=== PATIENT | male | born 1965 | race Caucasian/White ===

== ENCOUNTER 2020-06-24 13:18 | Inpatient (IN) | payer BC, SELFPAY ==
[2020-06-24] VITALS (14 sets, daily range): BP systolic 114–166; BP diastolic 64–90; PULSE 69–86; RESP 17–36; TEMP 36.9; O2SAT 85–95; BMI 30.4
--- NOTE | 2020-06-24 13:35 | XRR_ITS ---
PROCEDURE INFORMATION: Exam: XR Chest, 1 View Exam date and time: 06/24/2020 1:38 PM Age: 54 years old Clinical indication: Shortness of breath; Additional info: Hypoxia/ covid symptoms TECHNIQUE: Imaging protocol: XR of the chest Views: 1 view. COMPARISON: No relevant prior studies available. FINDINGS: Lungs: There are diffuse peripheral rounded pulmonary opacities which may represent pneumonitis and are consistent with clinical diagnosis of COVID-19 infection. These are present in all segments of the lungs. Pleural space: Unremarkable. No pleural effusion. No pneumothorax. Heart/Mediastinum: Heart is within normal limits of size. Bones/joints: There are degenerative changes in the thoracic spine. XR/XR chest 1V portable [id number] IMPRESSION: Bilateral pulmonary opacities consistent with clinical diagnosis of COVID-19
--- NOTE | 2020-06-24 13:35 | ECG_ITS ---
[facility] Test Date: 2020-06-24 Pat Name: Mickey Fuentes Department: Room: Gender: Male Prefabricator: : 1965 Requested By: Román Arroyo Order Number: [id number] Garcia MD: Johnnie Silver M.D. Measurements Intervals [place] Rate: 77 P: 19 TX: 133 QRS: -21 QRSD: 113 T: 15 QT: 379 QTc: 430 Interpretive Statements SINUS RHYTHM BORDERLINE LEFT AXIS DEVIATION [QRS AXIS < -20] MODERATE INTRAVENTRICULAR CONDUCTION DELAY [110+ ms QRS DURATION] VOLTAGE CRITERIA FOR LVH [MEETS CRITERIA IN ONE OF: R(aVL), S(V1), R(V5), R(V5/V6)+S(V1)] No previous ECG available for comparison Electronically Signed On 06-24-2020 16:39:22 CREPE MAKER by Johnnie Silver M.D. [id number]
--- NOTE | 2020-06-24 13:51 | ED_ITS ---
HPI - COVID General: Chief Complaint: COVID symptoms Stated Complaint: Throwing up Blood/low O2/Dizzy/SOB,sent from [facility] Time Seen by Provider: 06/24/20 13:27 Triage information: No fever, cough or shortness of breath . No known COVID + exposure last 14 days History of Present Illness: HPI Narrative: The patient is a 54-year-old male relatively healthy except for days ago he began having cough, muscle aches, low- grade fever, headache, nausea. The cough is since gotten worse and he went to his primary care doctor where he was satting in the mid 80s on room air. He says he has been also coughing up chunks of blood over the past couple days which is concerning for him. Multiple family members tested positive for Covid in the past 2 weeks. Satting 93% on 2 L. No respiratory distress MD complaint: reported COVID exposure and has COVID symptoms Prior covid testing: no COVID 19 common symptoms: positive fever(s), chills, cough, productive cough, dyspnea, body aches, headache(s) and loss of sense of smell and/or taste; negative throat pain, nasal congestion or diarrhea COVID 19 other sytmptoms: positive requiring oxygen; negative chest pain, respiratory distress, cyanosis, lethargy or confusion Severity: moderate COVID Results: SARS-CoV-2 Antigen (Rapid) Negative (Negative) 06/24/20 14:22 06/24/20 Review of Systems General: Reports: 10 or more systems reviewed and unremarkable except in HPI and below Const: Reports: fever(s) and body aches Eyes: Denies: change in vision, blurry vision or eye redness ENMT: Denies: throat pain, swelling of lips/tongue, ear or mastoid pain or nasal congestion Card: Denies: chest pain, palpitations, irregular heart rhythm, edema, dyspnea on exertion or orthopnea Resp: Reports: dyspnea, productive cough and hemoptysis GI: Denies: abdominal pain, diarrhea or GI cramping : Denies: flank pain, urinary frequency or urinary urgency Musc: Denies: neck pain, back pain, extremity pain, joint pain, joint redness, limited range of motion or muscle weakness Skin/Breast: Denies: rash, pruritus, erythema, skin pain or skin tenderness Neuro: Reports: headache(s); Denies: confusion Psych: Denies: anxiety or depression Endo: Denies: polyuria All/Imm: Denies: urticaria, throat swelling or tongue swelling Physical Exam Const: COMMON NORMALS: no acute distress, average body habitus, patient oriented x3, no limitations, healthy appearing, alert and well nourished GENERAL APPEARANCE: cooperative, comfortable, well kempt and well developed ORIENTATION/CONSCIOUSNESS: Yes awake, Yes oriented to person, Yes oriented to place and Yes oriented to time HENMT: COMMON NORMALS: normocephalic, external ears normal and Normal external nose present HEAD & SCALP: normal to inspection and normocephalic NOSE: Normal external nose present EXTERNAL EAR: Yes external ears normal MOUTH: Normal oral and palatal mucosa present THROAT: posterior oropharynx normal Eye: COMMON NORMALS: Equal, round and reactive pupils present and EOMs intact bilaterally GENERAL EYE: appearance normal, both eyes and all related structures PUPIL: Yes Equal, round and reactive pupils present Neck/C-Spine: COMMON NORMALS: full ROM, no lymphadenopathy, no meningeal signs and no JVD GENERAL: Yes normal visual inspection Lymph: LYMPHATIC: no lymphadenopathy noted Chest: COMMONS NORMALS: normal inspection of the chest and normal palpation of entire chest wall Resp: COMMON NORMALS: normal respiratory effort, No retractions, No use of accessory muscles and percussion normal EFFORT & INSPECTION: Yes able to speak in complete sentences AUSCULTATION: rhonchi left lower and right lower PERCUSSION: percussion normal Cardio: COMMON NORMALS: no JVD, regular rate, regular rhythm, S1 normal heart sound present, S2 normal heart sound present and Peripheral pulses 2+ throughout RATE: regular rate RHYTHM: regular rhythm HEART SOUNDS: S1 normal heart sound present and S2 normal heart sound present PERIPHERAL PULSES: Peripheral pulses 2+ throughout GI: COMMON NORMALS: Normal to inspection, nondistended, normoactive bowel sounds present, Soft to palpation, non-tender and no masses INSPECTION: Yes normal to inspection PALPATION: Yes Soft to palpation : COMMON NORMALS: Yes no CVA tenderness BLADDER/KIDNEY EXAM: Yes no CVA tenderness Back/Pelvis: COMMON NORMALS: no CVA tenderness, thoracic and lumbar spine normal to inspection, no thoracic nor lumbar tenderness and thoraco-lumbar ROM normal Extremity: COMMON NORMALS: normal to inspection, full ROM, capillary refill normal, no joint enlargement and no pedal edema GENERAL: Yes normal exam except as noted Neuro: COMMON NORMALS: patient oriented x3, CN's II-XII intact bilaterally, moves all extremities, no focal motor deficits, no sensory deficits noted and gait normal SENSORIUM/ORIENTATION: Yes alert, Yes oriented to person, Yes oriented to place and Yes oriented to time MENINGEAL SIGNS: Yes no meningeal signs Psych: COMMON NORMALS: mental status grossly normal, Normal thought process present, cooperative, normal affect and speech normal APPEARANCE: Yes well kempt ATTITUDE: Yes calm SPEECH: Yes normal speech THOUGHT PROCESS: Normal thought process present Skin: COMMON NORMALS: no rashes or lesions noted GENERAL SKIN EXAM: no rashes or lesions noted Course Vital Signs: Vital signs: Vital Signs Temperature 98.5 F 06/24/20 13:25 Pulse Rate 71 06/24/20 14:14 Respiratory Rate 17 06/24/20 14:13 Blood Pressure 131/75 06/24/20 13:25 Pulse Oximetry 94 06/24/20 14:13 MDM - COVID MDM Narrative: Medical decision making narrative: The patient is a 54-year-old male relatively healthy until 2 weeks ago when he started to have Covid symptoms and 2 family members tested positive. He has continued to cough and 2 days ago he started with hemoptysis. Today he visited his primary care and was satting 85% on room air. He has bilateral rhonchi and chest x-ray is patchy bilaterally as well. Suspected bilateral pneumonia possibly a superinfection as his Covid test is negative. PCR Covid test pending. Discussed with patient and Dr. Barber accepts his care for the Covid unit. Differential Diagnosis: Differential diagnosis: Likely COVID 19, influenza, other viral infection and bacterial infection Lab Data: Labs: Lab Results 06/24/20 06/24/20 06/24/20 Range/Units 14:14 14:14 14:14 WBC 9.6 (4.0-10.0) 10^3/ uL RBC 4.84 (4.1-5.3) 10^6/u L Hgb 14.2 (11.7-16.6) g/dL Hct 43.1 (42.0-52.0) % MCV 89.0 (80-94) fL MCH 29.3 (28.0-34.0) pg MCHC 32.9 (30.0-36.0) g/dL RDW 13.9 (12.1-15.1) % Plt Count 265 (130-400) 10^3/c mm MPV 9.0 (7.4-10.4) fL Neut % (Auto) 85.7 % Lymph % (Auto) 7.7 % Jackson % (Auto) 6.0 % Eos % (Auto) 0.0 % Baso % (Auto) 0.1 % Neut # (Auto) 8.19 H (1.8-7.7) 10^3/u L Lymph # (Auto) 0.7 L (0.8-4.8) 10^3/u L Jackson # (Auto) 0.6 (0.2-0.9) 10^3/u L Eos # (Auto) 0.0 (0.0-0.8) 10^3/u L Baso # (Auto) 0.0 (0.0-0.1) 10^3/u L Nucleated RBC % (a uto) 0 % Nucleated RBCs # 0.0 /100WBC D-Dimer 0.55 (0-0.59) ug/mIFE U Sodium 141 (136-145) mmol/L Potassium 3.8 (3.5-5.1) mmol/L Chloride 101 (98-107) mmol/L Carbon Dioxide 29 (22-29) mmol/L Anion Gap 14.8 (5-19) BUN 17 (6-20) mg/dL Creatinine 0.8 (0.7-1.2) mg/dL GFR Calculation 100.0 (90-130) mL/min Glucose 108 (65-115) mg/dL Calculated Osmolal ity 294 (285-295) mOsm/k g Lactic Acid (0.5-2.2) mmol/L Calcium 8.4 L (8.5-10.5) mg/dL Total Bilirubin 0.4 (0.15-1.2) mg/dL AST 32 (0-40) U/L ALT 36 (0-41) U/L Alkaline Phosphata se 62 (40-130) IU/L Troponin T Gen 5 n g/L (0-15) ng/L Total Protein 6.2 L (6.6-8.7) g/dL Albumin 3.7 (3.5-5.2) g/dL Globulin 2.5 (1.3-4.6) g/dL Influenza Type A A g (Negative) Influenza Type B A g (Negative) SARS-CoV-2 Ag (Rap id) (Negative) 06/24/20 06/24/20 06/24/20 Range/Units 14:14 14:14 14:22 WBC (4.0-10.0) 10^3/ uL RBC (4.1-5.3) 10^6/u L Hgb (11.7-16.6) g/dL Hct (42.0-52.0) % MCV (80-94) fL MCH (28.0-34.0) pg MCHC (30.0-36.0) g/dL RDW (12.1-15.1) % Plt Count (130-400) 10^3/c mm MPV (7.4-10.4) fL Neut % (Auto) % Lymph % (Auto) % Jackson % (Auto) % Eos % (Auto) % Baso % (Auto) % Neut # (Auto) (1.8-7.7) 10^3/u L Lymph # (Auto) (0.8-4.8) 10^3/u L Jackson # (Auto) (0.2-0.9) 10^3/u L Eos # (Auto) (0.0-0.8) 10^3/u L Baso # (Auto) (0.0-0.1) 10^3/u L Nucleated RBC % (a uto) % Nucleated RBCs # /100WBC D-Dimer (0-0.59) ug/mIFE U Sodium (136-145) mmol/L Potassium (3.5-5.1) mmol/L Chloride (98-107) mmol/L Carbon Dioxide (22-29) mmol/L Anion Gap (5-19) BUN (6-20) mg/dL Creatinine (0.7-1.2) mg/dL GFR Calculation (90-130) mL/min Glucose (65-115) mg/dL Calculated Osmolal ity (285-295) mOsm/k g Lactic Acid 1.3 (0.5-2.2) mmol/L Calcium (8.5-10.5) mg/dL Total Bilirubin (0.15-1.2) mg/dL AST (0-40) U/L ALT (0-41) U/L Alkaline Phosphata se (40-130) IU/L Troponin T Gen 5 n g/L 7 (0-15) ng/L Total Protein (6.6-8.7) g/dL Albumin (3.5-5.2) g/dL Globulin (1.3-4.6) g/dL Influenza Type A A g Negative (Negative) Influenza Type B A g Negative (Negative) SARS-CoV-2 Ag (Rap id) (Negative) 06/24/20 Range/Units 14:22 WBC (4.0-10.0) 10^3/ uL RBC (4.1-5.3) 10^6/u L Hgb (11.7-16.6) g/dL Hct (42.0-52.0) % MCV (80-94) fL MCH (28.0-34.0) pg MCHC (30.0-36.0) g/dL RDW (12.1-15.1) % Plt Count (130-400) 10^3/c mm MPV (7.4-10.4) fL Neut % (Auto) % Lymph % (Auto) % Jackson % (Auto) % Eos % (Auto) % Baso % (Auto) % Neut # (Auto) (1.8-7.7) 10^3/u L Lymph # (Auto) (0.8-4.8) 10^3/u L Jackson # (Auto) (0.2-0.9) 10^3/u L Eos # (Auto) (0.0-0.8) 10^3/u L Baso # (Auto) (0.0-0.1) 10^3/u L Nucleated RBC % (a uto) % Nucleated RBCs # /100WBC D-Dimer (0-0.59) ug/mIFE U Sodium (136-145) mmol/L Potassium (3.5-5.1) mmol/L Chloride (98-107) mmol/L Carbon Dioxide (22-29) mmol/L Anion Gap (5-19) BUN (6-20) mg/dL Creatinine (0.7-1.2) mg/dL GFR Calculation (90-130) mL/min Glucose (65-115) mg/dL Calculated Osmolal ity (285-295) mOsm/k g Lactic Acid (0.5-2.2) mmol/L Calcium (8.5-10.5) mg/dL Total Bilirubin (0.15-1.2) mg/dL AST (0-40) U/L ALT (0-41) U/L Alkaline Phosphata se (40-130) IU/L Troponin T Gen 5 n g/L (0-15) ng/L Total Protein (6.6-8.7) g/dL Albumin (3.5-5.2) g/dL Globulin (1.3-4.6) g/dL Influenza Type A A g (Negative) Influenza Type B A g (Negative) SARS-CoV-2 Ag (Rap id) Negative (Negative) COVID Results: SARS-CoV-2 Antigen (Rapid) Negative (Negative) 06/24/20 14:22 06/24/20 Discharge Plan Discharge Patient Disposition: Admitted As Inpatient Clinical Impression: Pneumonia, Suspected severe acute respiratory syndrome coronavirus 2 (SARS-CoV-2) infection Condition: Stable Prescriptions: No Action azithromycin 250 mg tablet 250 mg PO . DIRECTED RF: 0 pravastatin 40 mg tablet 40 mg PO DAILY@08 RF: 0 dexamethasone 4 mg tablet 4 mg PO DAILY RF: 0 aspirin 81 mg Tablet,Chewable 81 mg PO DAILY@08 RF: 0 Coding Level of Care Code ED [employer] for g Fwd Exam Comprehensive
[2020-06-24] MEDS: albuterol 8 gm MDI 2 PUFF INHALATION ×2 (14:08→23:33)
[2020-06-24] MEDS: cefTRIAXone 1,000 MG in sodium chloride 0.9% (plus) 50 ML 100 MG IV (14:10)
[2020-06-24] MEDS: sodium chloride 0.9% 1,000 ML 150 ML IV (14:10)
[2020-06-24 14:50] LABS: Basophils % 0.1 %; Hematocrit 43.1 % (42.0-52.0); Hemoglobin 14.2 g/dL (11.7-16.6); Lymphocytes # 0.7 10^3/uL (0.8-4.8); Lymphocytes % 7.7 %; Mean Corpuscular HGB Conc 32.9 g/dL (30.0-36.0); Mean Corpuscular Hemoglobin 29.3 pg (28.0-34.0); Monocytes # 0.6 10^3/uL (0.2-0.9); Neutrophils # 8.19 10^3/uL (1.8-7.7); Neutrophils % 85.7 %; Nucleated Red Blood Cells % 0 %; Platelet Count 265 10^3/cmm (130-400); Red Blood Count 4.84 10^6/uL (4.1-5.3); Red Cell Distribution Width 13.9 % (12.1-15.1); White Blood Count 9.6 10^3/uL (4.0-10.0)
[2020-06-24 15:28] LABS: D Dimer 0.55 ug/mIFEU (0-0.59)
[2020-06-24 15:34] LABS: Influenza A by IFA Negative (Negative); Influenza B by IFA Negative (Negative)
[2020-06-24 15:35] LABS: SARS Covid-2 Antigen Negative (Negative)
[2020-06-24 15:39] LABS: Alanine Aminotransferase 36 U/L (0-41); Albumin Level 3.7 g/dL (3.5-5.2); Alkaline Phosphatase 62 IU/L (40-130); Anion Gap 14.8 (5-19); Aspartate Amino Transferase 32 U/L (0-40); Blood Urea Nitrogen 17 mg/dL (6-20); Calcium 8.4 mg/dL (8.5-10.5); Carbon Dioxide 29 mmol/L (22-29); Chloride 101 mmol/L (98-107); Globulin 2.5 g/dL (1.3-4.6); Glucose 108 mg/dL (65-115); Lactic Sepsis W/Reflex 1.3 mmol/L (0.5-2.2); Osmolality Calculated 294 mOsm/kg (285-295); Potassium 3.8 mmol/L (3.5-5.1); Sodium 141 mmol/L (136-145); Total Bilirubin 0.4 mg/dL (0.15-1.2); Total Protein 6.2 g/dL (6.6-8.7)
[2020-06-24 15:42] LABS: Slide Review Slide Review Perform; Troponin T (5th) Once 7 ng/L (0-15)
[2020-06-24] MEDS: azithromycin 500 MG in sodium chloride 0.9% 250 ML 250 MG IV (15:59)
--- NOTE | 2020-06-24 20:21 | PM.HP ---
Providers/Chief Complaint Admitting Physician: Ezequiel Barber Chief Complaint: Throwing up Blood/low O2/Dizzy/SOB,sent from [facility] History of Present Illness Pleasant 54-year-old gentleman without much significant past medical history apart from HLD, on prophylactic aspirin, reports has had symptoms consistent with COVID-19 with cough, muscle aches, low-grade fever, headache, nausea he states at first about 12 days ago. More recently he has also developed cough productive of blood-streaked sputum, and sometimes small globules of blood. Also reports this developed some diarrhea and nausea. A number of his family members had tested positive and gone through COVID-19. When initially seen for symptoms he was prescribed azithromycin and dexamethasone. He says he was not tested. On presentation in ER he is found newly hypoxic. He denies any history of chronic lung disease. He has no history of smoking. He is noted saturating in low 90s on 2 L of oxygen. He is afebrile, without leukocytosis, without tachycardia. Chest x-ray shows bilateral pulmonary opacities. He is normal at 0.55. His D-dimer troponin is normal. Liver and renal parameters are normal. Review of Systems Const: Reports: fever(s) (Your initial, not currently), chills, body aches, fatigue and malaise Eyes: Denies: change in vision or eye redness ENMT: Denies: throat pain, oral sores or ear or mastoid pain Card: Denies: chest pain, edema or pre-syncope Resp: Reports: dyspnea, productive cough, change in phlegm color, hemoptysis and chest congestion GI: Reports: nausea; Denies: abdominal pain, vomiting, diarrhea (Loose stools), constipation, hematochezia or melena : Denies: flank pain, difficulty urinating, urinary frequency or hematuria Musc: Denies: back pain, joint swelling or joint redness Skin/Breast: Denies: rash, sores or new lesions Neuro: Denies: headache(s), numbness in extremities, weakness in extremities, dizziness, confusion or seizure-like activity Endo: Denies: polyuria or polydipsia Dandre/Lymph: Denies: easy bleeding or purpura All/Imm: Denies: urticaria, throat swelling or tongue swelling Medications/Allergies Home Medications Medication Instructions Recorded Confirmed Last Taken Type aspirin 81 mg PO DAILY@08 06/24/20 06/24/20 06/24/20 History azithromycin 250 mg PO . DIRECTED 06/24/20 06/24/20 06/24/20 History dexamethasone 4 mg PO DAILY 06/24/20 06/24/20 06/24/20 History pravastatin 40 mg PO DAILY@08 06/24/20 06/24/20 06/23/20 History Allergies Allergy/AdvReac Type Severity Reaction Status Date / Time No Known Allergies Allergy Verified 06/24/20 13:34 PFSH Acute PFSH: Medical History Hyperlipidemia Surgical History H/O arthroscopic knee surgery Family History Other Healthy adult Social History Smoking and tobacco status: never smoked Alcohol intake: never Substance/Drug Use: never Marital status: Current occupational status: employed Vitals/I&O/Wt Last Vital Signs Temp 98.5 F 06/24/20 13:25 Pulse 77 06/24/20 19:35 Resp 36 H 06/24/20 19:35 BP 152/86 06/24/20 19:35 Pulse Ox 90 06/24/20 19:35 06/24/20 06/24/20 06/24/20 06:59 14:59 22:59 Intake Total 300 / 300 Balance 300 / 300 Weight last 48 hrs Weight 90.718 kg Physical Exam Const: COMMON NORMALS: no acute distress and patient oriented x3 HENMT: COMMON NORMALS: oropharynx normal Neck/C-Spine: COMMON NORMALS: no JVD Resp: COMMON NORMALS: normal respiratory effort and clear to auscultation bilaterally AUSCULTATION: crackles and diminished lung sounds Cardio: COMMON NORMALS: no JVD, regular rhythm, S1 normal heart sound present, S2 normal heart sound present and No murmurs present (Cardio) RHYTHM: regular rhythm HEART SOUNDS: S1 normal heart sound present and S2 normal heart sound present GI: COMMON NORMALS: Normal to inspection, nondistended, normoactive bowel sounds present, Soft to palpation and non-tender PALPATION: Yes Soft to palpation Extremity: COMMON NORMALS: no joint enlargement and no pedal edema Neuro: COMMON NORMALS: patient oriented x3 and moves all extremities Skin: COMMON NORMALS: no rashes or lesions noted GENERAL SKIN EXAM: no rashes or lesions noted Data : 06/24/20 14:14 06/24/20 14:14 Micro: Microbiology 06/24/20 14:14 Blood Culture - Preliminary Blood SPECIMEN COLLECTED A&P Assessment and plan (1) Respiratory failure with hypoxia: Possible COVID-19 pneumonia, however, negative rapid test. At this time started on nasal cannula oxygen. Saturating in low 90s on several liters. Due to lack of improvement, progression of symptoms, new hypoxia, he is admitted for inpatient management. With normal D-dimer no asymmetrical lower extremity swelling, other causes for his hypoxia suspicion for PE is low. Status: Acute (2) Person under investigation for COVID-19: Discussed with him high likelihood that this may be COVID-19 infection, with multiple family members who have had it, and symptoms that are suggestive of this. He currently agrees to continue Decadron at 6 mg. We have discussed risks and benefits of remdesivir, at least known risks, understands there may be some unknown risks as well. He for now prefers to hold off on remdesivir until PCR test results are available. We will treat with antibiotics for possible superimposed bacterial infection. He understands that if this is in fact coronavirus he falls into the category of severe coronavirus pneumonia. Prone as tolerating. Albuterol inhaler as needed. Collect sputum culture, urine bacterial antigens. MRSA PCR. Status: Acute (3) Pneumonia: As above. Status: Acute Qualifiers: Laterality: bilateral Lung location: unspecified part of lung Pneumonia type: due to unspecified organism Qualified Code(s): J18.9 - Pneumonia, unspecified organism (4) Hemoptysis: Hold aspirin. Treat pneumonia. Tessalon Perles. Monitor. Only SCD for VT prophylaxis. Status: Acute Attestations Medical Necessity Statement*: Admission of over 2 midnights is going to be needed for assessment management of progressive pneumonia, not responsive to outpatient treatment, with new hypoxic respiratory failure. Coding Level of Care Code Acute Colorectal Surgeon for [facility] Fwd Diagnoses Respiratory failure with hypoxia J96.91 Person under investigation for COVID-19 Z20.828 Pneumonia J18.9 Laterality: bilateral Lung location: unspecified part of lung Pneumonia type: due to unspecified organism Hemoptysis R04.2
[2020-06-24 20:45] LABS: NT Pro B Type Natriuretic Pept 496 pg/mL (0-125)
[2020-06-24] MEDS: dexamethasone 4 mg Tablet 6 MG PO (21:46)
[2020-06-25] VITALS (27 sets, daily range): BP systolic 132–160; BP diastolic 75–95; PULSE 65–92; RESP 12–38; TEMP 37–37.2; O2SAT 84–95; BMI 30.5
[2020-06-25 05:24] LABS: Basophils % 0.4 %; Hematocrit 42.3 % (42.0-52.0); Hemoglobin 12.9 g/dL (11.7-16.6); Lymphocytes # 1.1 10^3/uL (0.8-4.8); Lymphocytes % 13.3 %; Mean Corpuscular HGB Conc 30.5 g/dL (30.0-36.0); Mean Corpuscular Hemoglobin 29.3 pg (28.0-34.0); Mean Corpuscular Volume 96.1 fL (80-94); Mean Platelet Volume 9.2 fL (7.4-10.4); Monocytes # 0.5 10^3/uL (0.2-0.9); Monocytes % 5.5 %; Neutrophils # 6.49 10^3/uL (1.8-7.7); Neutrophils % 79.9 %; Nucleated Red Blood Cells % 0 %; Platelet Count 243 10^3/cmm (130-400); White Blood Count 8.1 10^3/uL (4.0-10.0)
[2020-06-25] MEDS: benzonatate 100 mg Capsule PO ×3 (05:42→20:04)
[2020-06-25 05:53] LABS: Alanine Aminotransferase 31 U/L (0-41); Alkaline Phosphatase 52 IU/L (40-130); Aspartate Amino Transferase 27 U/L (0-40); Blood Urea Nitrogen 15 mg/dL (6-20); Calcium 8.4 mg/dL (8.5-10.5); Carbon Dioxide 26 mmol/L (22-29); Chloride 106 mmol/L (98-107); Creatinine Clr Calc Pharmacy 129.1813; Globulin 2.9 g/dL (1.3-4.6); Glomerular Filtration Rate 116.7 mL/min (90-130); Glucose 135 mg/dL (65-115); Osmolality Calculated 297 mOsm/kg (285-295); Sodium 142 mmol/L (136-145); Total Bilirubin 0.3 mg/dL (0.15-1.2); Total Protein 5.9 g/dL (6.6-8.7)
[2020-06-25 06:03] LABS: Anion Gap 14.1 (5-19); Potassium 4.1 mmol/L (3.5-5.1)
[2020-06-25 06:21] LABS: Slide Review Slide Review Perform
[2020-06-25] MEDS: famotidine 20 mg Tablet PO (08:38)
[2020-06-25] MEDS: dexamethasone 4 mg Tablet 6 MG PO (08:38)
[2020-06-25] MEDS: atorvastatin 40 mg Tablet 20 MG PO (08:38)
--- NOTE | 2020-06-25 11:41 | PM.PN ---
Subjective Subjective: Interval history: Increasing oxygen requirement today to 5 L/min on nasal cannula. Tachypneic charting at respiratory rate 126/min, hemodynamically stable. Continuing on steroids. Respiratory PCR is still pending at this time. Medications: Reviewed: Yes Vitals/I&O/Wt Last Vital Signs Temp 98.5 F 06/24/20 13:25 Pulse 65 06/25/20 08:00 Resp 26 H 06/25/20 08:00 BP 142/85 06/25/20 08:00 Pulse Ox 92 06/25/20 08:00 06/24/20 06/25/20 06/25/20 22:59 06:59 14:59 Intake Total 300 / 300 Balance 300 / 300 Weight last 48 hrs Weight 91.172 kg Weight 90.718 kg Physical Exam Narrative: EXAM NARRATIVE: GEN: Awake, alert and oriented, no acute distress CVS: S1S2 N RS: CTA B/L Abd: Soft, nt/nd , bs+ FIT MODEL: no focal neuro deficits Data : 06/25/20 05:01 06/25/20 05:01 Micro: Microbiology 06/25/20 00:30 Gram Stain - Final Sputum - Expectorated Sputum 06/25/20 00:30 Bacterial Antigens - Final Urine,Voided 06/25/20 00:30 Legionella Urinary Antigen - Final Urine,Clean Catch 06/24/20 14:14 Blood Culture - Preliminary Blood SPECIMEN COLLECTED A&P Assessment and plan (1) Respiratory failure with hypoxia: Possible COVID-19 pneumonia, however, negative rapid test. Pending PCR, sent to [employer]. At this time started on nasal cannula oxygen. Saturating in low 90s on increasing requirement at 5 L/min. Due to lack of improvement, progression of symptoms, new hypoxia, he is admitted for inpatient management. With normal D-dimer no asymmetrical lower extremity swelling, other causes for his hypoxia suspicion for PE is low. However start prophylactic anticoagulation with Lovenox. Status: Acute (2) Person under investigation for COVID-19: High risk for having Covid 19 in spite of negative antigen test. We will treat with antibiotics for possible superimposed bacterial infection. He understands that if this is in fact coronavirus he falls into the category of severe coronavirus pneumonia. Declined starting remdesivir for now Prone as tolerating. Albuterol inhaler standing every 6 hours, add spirometry and Acapella Continue ceftriaxone and azithromycin, MRSA PCR pending negative urine Legionella and bacterial antigens pending MRSA screen Status: Acute (3) Pneumonia: As above. Status: Acute Qualifiers: Laterality: bilateral Lung location: unspecified part of lung Pneumonia type: due to unspecified organism Qualified Code(s): J18.9 - Pneumonia, unspecified organism (4) Hemoptysis: Hold aspirin. Treat pneumonia. Tessalon Perles. Monitor. add lovenox for DVT ppx. Status: Acute Attestations Medical Necessity Statement*: increasing 02 requirement, concern for COVID 19 pneumonia Coding Level of Care Code Acute Machine [employer]ii Coremaker for [facility] Fw Diagnoses Respiratory failure with hypoxia J96.91 Person under investigation for COVID-19 Z20.828 Pneumonia J18.9 Laterality: bilateral Lung location: unspecified part of lung Pneumonia type: due to unspecified organism Hemoptysis R04.2
[2020-06-25] MEDS: albuterol 8 gm MDI 2 PUFF INHALATION (11:42)
--- NOTE | 2020-06-25 13:26 | PC.NURSE ---
Update Patient is sitting up on side of bed eating meals today. Oxygen mask is applied and no complaints are being made at this time.
[2020-06-25] MEDS: cefTRIAXone 1,000 MG in sodium chloride 0.9% (plus) 50 ML 100 MG IV (13:41)
[2020-06-25] MEDS: azithromycin 500 MG in sodium chloride 0.9% 250 ML 250 MG IV (13:42)
--- NOTE | 2020-06-25 14:42 | CTR_ITS ---
PROCEDURE INFORMATION: Exam: CT Angiography Chest With Contrast Exam date and time: 06/25/2020 2:55 PM Age: 54 years old Clinical indication: Cough and shortness of breath; Patient HX: Hypoxia, cough, covid exposure; Additional info: Evalute for pe, increasing 02 requirements TECHNIQUE: Imaging protocol: Computed tomographic angiography of the chest with intravenous contrast. 3D rendering (Not supervised by radiologist): MIP reconstructed images were created by the technologist. Radiation optimization: All CT scans at this facility use at least one of these dose optimization techniques: automated exposure control; mA and/or kV adjustment per patient size (includes targeted exams where dose is matched to clinical indication); or iterative reconstruction. Contrast material: OMNI 350; Contrast volume: 78 ml; Contrast route: INTRAVENOUS (IV); COMPARISON: CR (CHEST, ) 06/24/2020 2:00 PM RADIATION DOSE METRICS: Total DLP (mGy-cm): 548.61 FINDINGS: Pulmonary arteries: Normal. No pulmonary emboli. Aorta: Mild aortic arch atherosclerotic calcification without ectasia. Thyroid: The bilateral thyroid lobes are unremarkable. Lungs: Patchy bilateral pulmonary non-rounded ground-glass opacities with interlobular septal thickening, subsegmental atelectasis and architectural distortion, without central-peripheral preference. Pleural space: No pneumothorax. No pleural effusion. Heart: LAD and RCA calcified coronary atherosclerosis. Lymph nodes: No enlarged lymph nodes. Bones/joints: Mild chronic T2, T3 and T12 vertebral body compression deformities. Soft tissues: Unremarkable. CT/CT angio chest PE protcl [id number] IMPRESSION: 1. No pulmonary embolism identified. 2. Imaging features present which can be seen with COVID-19 pneumonia (more typical of the subacute phase), though are nonspecific and can occur with a variety of infectious and noninfectious processes. Clinical correlation is recommended. 3. Coronary atherosclerosis. Radiation Dose CTDIVOL = (mGy): DLP = 548.61 (mGy-cm)
[2020-06-25] MEDS: iohexol 350 mg/mL 100 mL Btl IV (15:11)
--- NOTE | 2020-06-25 15:38 | PC.NURSE ---
CT Pt taken to CT via wheelchair at 1500. Tolerated well
[2020-06-25] MEDS: remdesivir 200 MG in sodium chloride 0.9% (100 ml) 100 ML 100 MG IV (17:28)
--- NOTE | 2020-06-25 22:46 | PC.NURSE ---
Patient resting in bed with eyes open watching TV. Patient is alert and orientated x4. Lung sounds crackles noted throughout all lobes, patient on oxymask at 10L. BS active in all quadrants, pedal pulses palpable in bilateral extremities, Patient is continent and uses bathroom and urinal for voiding. Call light within reach, continue care.
[2020-06-26] VITALS (32 sets, daily range): BP systolic 121–174; BP diastolic 68–97; PULSE 61–85; RESP 16–33; TEMP 36.7–37.2; O2SAT 85–97
--- NOTE | 2020-06-26 01:20 | PC.NURSE ---
Patient's oxygenation level continues to decrease despite increased oxygen levels. RT notified and contact Dr. Fields who wants to add Bipap to maintain o2 levels.
--- NOTE | 2020-06-26 03:10 | PC.NURSE ---
Patients O2 sats improving on BIPAP. Continue care.
[2020-06-26 04:55] LABS: Hematocrit 41.7 % (42.0-52.0); Hemoglobin 13.6 g/dL (11.7-16.6); Mean Corpuscular HGB Conc 32.6 g/dL (30.0-36.0); Mean Corpuscular Hemoglobin 29.3 pg (28.0-34.0); Mean Corpuscular Volume 89.9 fL (80-94); Mean Platelet Volume 9.2 fL (7.4-10.4); Platelet Count 351 10^3/cmm (130-400); Red Blood Count 4.64 10^6/uL (4.1-5.3); Red Cell Distribution Width 13.6 % (12.1-15.1); White Blood Count 11.4 10^3/uL (4.0-10.0)
[2020-06-26 05:07] LABS: D Dimer 1.33 ug/mIFEU (0-0.59)
[2020-06-26 05:11] LABS: Alanine Aminotransferase 29 U/L (0-41); Albumin Level 3.2 g/dL (3.5-5.2); Alkaline Phosphatase 67 IU/L (40-130); Anion Gap 13.7 (5-19); Aspartate Amino Transferase 22 U/L (0-40); Blood Urea Nitrogen 16 mg/dL (6-20); C Reactive Protein 62.8 mg/L (0.0-4.9); Calcium 8.6 mg/dL (8.5-10.5); Carbon Dioxide 30 mmol/L (22-29); Chloride 103 mmol/L (98-107); Ferritin 810 ng/mL (30-400); Globulin 2.8 g/dL (1.3-4.6); Glucose 147 mg/dL (65-115); Lactate Dehydrogenase 409 U/L (135-225); Osmolality Calculated 300 mOsm/kg (285-295); Potassium 3.7 mmol/L (3.5-5.1); Sodium 143 mmol/L (136-145); Total Bilirubin 0.3 mg/dL (0.15-1.2)
[2020-06-26 05:37] LABS: Slide Review Slide Review Perform
[2020-06-26 05:42] LABS: Absolute Neutrophil 9.3 10^3/cmm (1.4-6.5); Absolute Segmented Neutrophil 8.9 10/cmm (1.6-7.1); Band Neutrophils Absolute 0.5 10^3/cmm (0.0-1.2); Eosinophils 0 %; Giant Platelets 1+; Lymphocytes 6 %; Monocytes Absolute 0.6 10^3/cmm (0.1-0.6); Platelet Estimate Normal (Normal); Polychromasia 1+; Segmented Neutrophils 78 %; Total Cells Counted 100 (0-100)
--- NOTE | 2020-06-26 05:59 | PC.NURSE ---
Patient resting in bed, watching TV. No complaints of pain or s/s of distress. Call light within reach. Continue care.
[2020-06-26] MEDS: pantoprazole DR 40 mg Tablet PO (08:40)
[2020-06-26] MEDS: benzonatate 100 mg Capsule PO ×3 (08:41→21:26)
[2020-06-26] MEDS: atorvastatin 40 mg Tablet 20 MG PO (08:41)
--- NOTE | 2020-06-26 09:38 | PC.CHAP ---
Pastoral Care Encounter/Spiritual Assessment Type of Contact [] Declined peeled potato inspector visit [] Patient/Family/Request visit [] Outpatient visit [] Follow-up visit [] Physician referral [] Code/Alert [] Routine visit [] Staff referral [] Actively dying [] Patient sleeping [] Family support [] [] Out of room [] Palliative care [] [] Receiving care in room [] Pre-surgical visit [] Trauma [] Long length of stay [x] ICU visit [] Other: Relational/Emotional Strength [] Patient feels connected with others/family/visitors/staff [] Distress [] Loneliness/isolation [] Abandonment Spirituality of Patient [] Person of Jihan [] Attends Rastafari of their Jihan [] Believes in Prayer [] Reads Bible or Christianity materials [] There are Spiritual issues to be addressed Rotary Cutter Feeder Interventions [x] Prayer [] Active listening [] Non-anxious presence [] Spiritual/emotional support [] Crisis/trauma care [] Spiritual counseling [] Bereavement support [] Provided bereavement packet [] Provided Bible/devotional materials [] Provided toy/stuffed animal, coloring book to patient or family member [] Provided Communion [] Anointing/[place] [] Salvation [x] Completed spiritual assessment [] Other: Impact on Illness or Injury [] Angry [] Fearful [] Anxious [] Often cries [] Exhaustion [] Unable to work [] Unable to attend congregational [] Unable to walk/stand [] Unable to read [] Unable to drive [] Unable to eat/drink [] Unable to sleep [] Unable to be with family [] Patient intubated [] Other: Summary Time spent with patient
--- NOTE | 2020-06-26 11:33 | USCV_ITS ---
Dry, Mickey Age: 54 Gender: M : 1965 Exam Date: 06/26/2020 12:09 Ordering Phys: Nina Chowdhury MD Technologist: [place] [facility] [place] CHECK RT SIDE PULM EMB BP: 143 / 87 HR: 78 Rhythm: Sinus Technical Quality: Fair MEASUREMENTS (Male / Female) Normal Values 2D ECHO LV Diastolic Diameter PLAX 5.5 cm 4.2 - 5.9 / 3.9 - 5.3 cm LV Systolic Diameter PLAX 2.8 cm LV Chamber Size 4.9 cm IVS Diastolic Thickness 0.9 cm 0.6 - 1.0 / 0.6 - 0.9 cm IVS Systolic Thickness 1.4 cm LVPW Diastolic Thickness 0.9 cm 0.6 - 1.0 / 0.6 - 0.9 cm LVPW Systolic Thickness 1.8 cm RV Chamber Size 3.5 cm LVOT Diameter 1.8 cm LV Ejection Fraction 2D Teich 79.3 % LA Diameter 3.5 cm LA Width 3.4 cm LA Height 4.9 cm RA Width 3.4 cm RA Height 4.2 cm Aorta at Sinotubular Diameter 2.3 cm M-MODE LV Diastolic Diameter MM 6.4 cm 4.2 - 5.9 / 3.9 - 5.3 cm LV Systolic Diameter MM 4.1 cm LV Ejection Fraction MM Teich 64.3 % IVS Diastolic Thickness MM 0.7 cm 0.6 - 1.0 / 0.6 - 0.9 cm IVS Systolic Thickness MM 0.9 cm LVPW Diastolic Thickness MM 1.0 cm 0.6 - 1.0 / 0.6 - 0.9 cm LVPW Systolic Thickness MM 1.3 cm Aortic Annulus Diameter 2.9 cm LA Ao Ratio MM 1.2 MV E Point Septal Separation 0.8 cm DOPPLER AV Peak Velocity 163.0 cm/s LVOT Peak Velocity 159.0 cm/s AV Area Cont Eq vti 2.1 cm squared AV Area Cont Eq pk 2.5 cm squared MV Area PHT 4.0 cm squared Mitral E to A Ratio 1.6 MV E' Velocity 58.5 cm/s Mitral E to MV E' Ratio 10.7 Mitral E to LV E' Lateral Ratio 10.0 Mitral E to LV E' Septal Ratio 11.7 TR Peak Velocity 280.6 cm/s TR Peak Gradient 31.5 mmHg TR Mean Velocity 249.5 cm/s TR Mean Gradient 25.2 mmHg TR Velocity Time Integral 82.1 cm TV Peak E Velocity 78.0 cm/s FINDINGS Left Ventricle Normal left ventricular size and systolic function, EF 60%.no regional wall motion abnormalities. Right Ventricle The right ventricle is normal in size and function. Right Atrium The right atrium is normal in size. Left Atrium The left atrium is normal in size. Mitral Valve Mild-moderate mitral valve regurgitation. Aortic Valve No gross abnormalities noted . Tricuspid Valve Trace to mild tricuspid valve regurgitation. Pulmonic Valve No gross abnormalities noted Pericardium Normal pericardium without effusion. Aorta Normal ascending aorta dimension. CONCLUSIONS Normal left ventricular size and systolic function, EF 60%. No regional wall motion abnormalities. Mild-moderate mitral valve regurgitation. Trace to mild tricuspid valve regurgitation. There is no pericardial effusion. There are no intracardiac masses. No previous study is available for comparison. Dr Salazar Dunbar MD FACC (Electronically Signed) Final Date: 26 June 2020 17:23 S
[2020-06-26 12:37] LABS: ABG PCO2 42.6 mmHg (35-45); ABG PH Result 7.45 (7.35-7.45); Arterial Blood Gas Hematocrit 44.2 % (42-52); Base Excess ABG 4.9 mmol/L (-2.0-2.0); Blood Gas Allen Test Pos; Blood Gas Operator Identificat BD; Blood Gas Sample Site Brachial, right; Blood Gas Sample Type Arterial; HCO3 ABG 29.6 mmol/L (22-26); PO2 ABG 61.4 mmHg (80.0-100.0)
[2020-06-26 12:40] LABS: SARS Covid-2 Antigen Negative (Negative)
[2020-06-26] MEDS: vancomycin 1,500 MG/300 ML PIGGYBACK 200 MG IV (13:02)
[2020-06-26] MEDS: azithromycin 500 MG in sodium chloride 0.9% 250 ML 250 MG IV (13:02)
[2020-06-26] MEDS: piperacillin-tazobactam 3.375 GM in sodium chloride 0.9% (plus) 50 ML IV ×2 (14:12→21:31)
--- NOTE | 2020-06-26 15:57 | PM.PN ---
Subjective Subjective: Interval history: Patient's oxygen requirements continued to go up overnight. He did need a trial of BiPAP, however did not tolerate this well and has been placed on heated high flow since last night. At the time of my evaluation this morning he is on 70% FiO2 at 40 L/min. CTA of the chest was performed yesterday which did not reveal any evidence of PE, however does show bilateral infiltrates concerning for ARDS which given clinical history appears to be most consistent with COVID-19. Inflammatory markers in addition including D-dimer LDH and CRP have trended up. Hemoptysis is improved today and patient has not seen any more blood-tinged discharge. Remains afebrile, blood pressure is currently being maintained. Medications: Reviewed: Yes Vitals/I&O/Wt Last Vital Signs Temp 98.0 F 06/26/20 12:00 Pulse 77 06/26/20 12:00 Resp 28 H 06/26/20 12:00 BP 143/87 06/26/20 12:00 Pulse Ox 96 06/26/20 12:00 06/26/20 06/26/20 06/26/20 06:59 14:59 22:59 Intake Total 60 / 600 650 / 650 Output Total 400 / 800 Balance -340 / -200 650 / 650 Weight last 48 hrs Weight 93.071 kg Weight 91.172 kg Physical Exam Narrative: EXAM NARRATIVE: GEN: Awake, alert and oriented, currently on heated high flow, no abdominal retractions, no noted tachypnea CVS: S1S2 N RS: Scattered fine crackles to auscultation bilaterally Abd: Soft, nt/nd , bs+ STAMP REDEMPTION CLERK: no focal neuro deficits Data : 06/26/20 04:10 06/26/20 04:10 Micro: Microbiology 06/25/20 00:30 Gram Stain - Final Sputum - Expectorated Sputum Sputum Culture - Preliminary 06/24/20 14:14 Blood Culture - Preliminary Blood NEGATIVE TO DATE A&P Assessment and plan (1) Respiratory failure with hypoxia: Possible COVID-19 pneumonia based on imaging and elevated inflammatory markers, however, negative rapid test x2. Pending PCR, sent to [facility]. Patient's absolute oxygen requirements have rapidly increased over the last 48 hours from being on 2 L/min via nasal cannula upon admission to high flow nasal cannula with 70% FiO2 and 40 L/min at the time of my exam this morning. CTA was performed yesterday which did not show any evidence of PE. Bilateral exudates were noted raising concern for ARDS check ABG today Broaden abx coverage to Zosyn, azithromycin and vancomycin for possibility of post viral pneumonia MRSA PCR analyzer not currently working in the lab started Remdisivir empirically due to high suspicion on 06/25, discussed with patient that he appears to be approx 12 days from symptom onset, therefore it is uncertain if Remdisivir will have any benefit, however agreeable to procced for now with close Monitoring of liver and kidney function while on this drug streoids increased to meythprednisone 30mg iv q8h Less likely to be alternate etiology such as PJP as patient not otherwise imuunocompromised, has been on steroids less than one month. If COVID PCR remains negative, will evaluate for possible other sources added spirometry and flutter valve on 06/[address] Mims Status: Acute Qualifiers: Chronicity: acute Qualified Code(s): J96.01 - Acute respiratory failure with hypoxia (2) Person under investigation for COVID-19: Status: Acute (3) Pneumonia: As above. Status: Acute Qualifiers: Laterality: bilateral Lung location: unspecified part of lung Pneumonia type: due to unspecified organism Qualified Code(s): J18.9 - Pneumonia, unspecified organism (4) Hemoptysis: Hold aspirin. Treat pneumonia. Tessalon Perles. Monitor. add lovenox for DVT ppx. Status: Acute Additional A&P Information DVT ppx: start lovenox 40mg daily Attestations Medical Necessity Statement*: acute hypoxic respiratory failure Coding Level of Care Code Acute Undercover Operator for [facility] Diagnoses Respiratory failure with hypoxia J96.01 Chronicity: acute Person under investigation for COVID-19 Z20.828 Pneumonia J18.9 Laterality: bilateral Lung location: unspecified part of lung Pneumonia type: due to unspecified organism Hemoptysis R04.2
[2020-06-26] MEDS: enoxaparin 40 mg/0.4 mL Syringe SUBCUT (15:59)
[2020-06-26 16:07] LABS: Quest SARS-CoV-2 RNA DETECTED (NOT DETECTED)
--- NOTE | 2020-06-26 16:15 | PC.NURSE ---
Dr. Chowdhury notified that patient PCR result came back positive. dials supervisor notified. pending transfer to [facility]. Nurse to continue to monitor.
[2020-06-26] MEDS: remdesivir 100 MG in sodium chloride 0.9% (100 ml) 100 ML IV (18:00)
[2020-06-26] MEDS: albuterol 8 gm MDI 2 PUFF INHALATION (20:54)
--- NOTE | 2020-06-26 21:12 | NUR.SHIFT ---
NURSING NOTE: ADMISSION: PT ARRIVED TO UNIT AT THIS TIME PER STRETCHER. ALERT AND ORIENTED X4, MOVES ALL EXTREMITIES AND FOLLOWS ALL COMMANDS. DENIES PAIN AT THIS TIME. 02 PER HHNC 40L, FI02 OF 75%. 02 SAT = 92% AT THIS TIME. RESTING AWAKE IN BED. ALL VS AND ASSESSMENTS CHARTED. NO DISTRESS NOTED.
--- NOTE | 2020-06-26 22:20 | PC.NURSE ---
NURSING NOTE: PT POSITION; PT PUT IN PRONE POSITION AT 2200 THIS SHIFT. TOLERATING WELL AT PRESENT. ALL VS AND ASSESSMENTS CHARTED.
[2020-06-27] VITALS (36 sets, daily range): BP systolic 115–157; BP diastolic 63–120; PULSE 53–93; RESP 10–36; TEMP 36.4–36.8; O2SAT 88–98
--- NOTE | 2020-06-27 00:42 | PM.CONSULT ---
Providers/Reason For Consult Consulting Physican/Specialty*: Derik Mims MD/Pulmonary Critical Care Reason for Consult*: acute hypoxic respiratory failure due to Covid 19 pneumonia requiring high flow Oxygen. Requesting Physcian: Nina Walker MD Attending Physician: Daniel South History of Present Illness History of Present Illness 54-year-old gentleman H of HLD, on prophylactic aspirin, reports has had symptoms consistent with COVID-19 with cough, muscle aches, low-grade fever, headache, nausea he states at first about 12 days ago. More recently he has also developed cough productive of blood-streaked sputum, and sometimes small globules of blood. Also reports this developed some diarrhea and nausea. A number of his family members had tested positive and gone through COVID-19. When initially seen for symptoms he was prescribed azithromycin and dexamethasone. He says he was not tested. On presentation in ER he is found newly hypoxic. He denies any history of chronic lung disease. He has no history of smoking. He is noted saturating in low 90s on 2 L of oxygen. He is afebrile, without leukocytosis, without tachycardia. Chest x-ray shows bilateral pulmonary opacities. His D-dimer troponin is normal. Liver and renal parameters are normal. Later oxygen requirement went up to 45 L and 70%. Pulmonary consult requested for acute hypoxic respiratory failure. Currently patient is seen in VICU on 30 L and FiO2 45% He is self proning intermittently and not in respiratory distress No more episodes of hemoptysis. Otherwise looks stable Review of Systems General: Reports: 10 or more systems reviewed and unremarkable except in HPI and below Meds/Allergies Home Medications and Allergies Home Medications Medication Instructions Recorded Confirmed Last Taken Type aspirin 81 mg PO DAILY@06/24/20 06/24/20 06/24/20 History azithromycin 250 mg PO . DIRECTED 06/24/20 06/24/20 06/24/20 History dexamethasone 4 mg PO DAILY 06/24/20 06/24/20 06/24/20 History pravastatin 40 mg PO DAILY@06/24/20 06/24/20 06/23/20 History Allergies Allergy/AdvReac Type Severity Reaction Status Date / Time No Known Allergies Allergy Verified 06/24/20 13:34 Current Medications Current Medications Generic Name Dose Route Start Last Admin Trade Name Freq PRN Reason Stop Dose Admin Albuterol Sulfate 2 puff 06/24/20 20:32 06/26/20 20:54 Albuterol 8 Gm Mdi INHALATION 2 puff Q4H.RESPIRATORY PRN Administration SHORTNESS OF BREATH Atorvastatin Calcium 20 mg 06/25/20 08:00 06/26/20 08:41 Atorvastatin 40 Mg Tablet PO 20 mg DAILY@08 RORY Administration Benzonatate 100 mg 06/25/20 15:00 06/26/20 21:26 Benzonatate 100 Mg Capsule PO 100 mg TID RORY Administration Enoxaparin Sodium 40 mg 06/26/20 15:30 06/26/20 15:59 Enoxaparin 40 Mg/0.4 Ml Syringe SUBCUT 40 mg Q24H RORY Administration Azithromycin 500 mg/ Sodium 250 mls @ 250 mls/hr 06/25/20 13:30 06/26/20 14:02 Chloride IV Infused Q24H RORY Infusion Protocol Remdesivir 100 mg/ Sodium 100 mls @ 100 mls/hr 06/26/20 18:00 06/26/20 19:08 Chloride IV 06/29/20 18:59 Infused Q24H RORY Infusion Piperacillin Sod/Tazobactam 50 mls @ 12.5 mls/hr 06/26/20 14:30 06/27/20 00:37 Sod 3.375 gm/ Sodium Chloride IV Infused Q8H RORY Infusion Protocol Vancomycin/PEG/NADA/Lysine/Water 1,500 mg in 300 mls @ 200 mls/hr 06/26/20 13:00 06/26/20 14:32 Vancocin IV Infused Q12H RORY Infusion Methylprednisolone Sodium Succinate 30 mg 06/25/20 15:00 06/26/20 22:59 Methylprednisolone Sod Succ 40 Mg/Ml Inj IVP 30 mg Q8H RORY Administration Pantoprazole Sodium 40 mg 06/26/20 09:00 06/26/20 08:[address] 40 Mg Tablet PO 40 mg DAILY RORY Administration PFSH Acute PFSH: Medical History Hyperlipidemia Surgical History H/O arthroscopic knee surgery Family History Other Healthy adult Social History Smoking and tobacco status: never smoked Alcohol intake: never Substance/Drug Use: never Marital status: Current occupational status: employed Vitals/I&O/Wt Last Vital Signs Temp 98.0 F 06/26/20 12:00 Pulse 72 06/27/20 00:00 Resp 36 H 06/27/20 00:00 BP 137/84 06/27/20 00:00 Pulse Ox 93 06/27/20 00:00 06/26/20 06/26/20 06/27/20 14:59 22:59 06:59 Intake Total 1050 / 1050 1050 / 2100 50 / 2150 Output Total 850 / 850 625 / 1475 Balance 200 / 200 425 / 625 50 / 675 Weight last 48 hrs Weight 205 lb 3 oz Weight 201 lb Physical Exam Narrative: EXAM NARRATIVE: General: alert, NAD HEENT: conj clear, EOMI, PERRL, mmm, Neck: supple, no meningismus Heme: no cervical LAP Pulmonary: CTAB, bilateral diffuse crackles Cardiovascular: rrr, nl s1s2, no mrg Abdomen: soft, nt, nd, no r/g, bs+ Extremities: pulses +, no edema, no c/c : no CVA tenderness Skin: intact, no rash MSK: no back or neck pain Neurologic: grossly intact Data Micro: Micro: Microbiology 06/25/20 00:30 Gram Stain - Final Sputum - Expector ated Sputum Sputum Culture - P reliminary Other Data: Other data: Reviewed labs, imaging, [facility] A&P Assessment and plan (1) Hemoptysis: Status: Acute (2) Respiratory failure with hypoxia: Status: Acute Qualifiers: Chronicity: acute Qualified Code(s): J96.01 - Acute respiratory failure with hypoxia (3) Suspected severe acute respiratory syndrome coronavirus 2 (SARS-CoV-2) infection: Status: Acute 54-year-old gentleman with past medical history of hyperlipidemia admitted to PICU for acute hypoxic respiratory failure secondary to COVID-19 pneumonia requiring high flow oxygen. NEURO: #No active issues -Mentation intact-alert oriented x3 PULM: #Acute hypoxic respiratory failure secondary to COVID pna -Currently saturating 93% on 30 L 45% FiO2 -Encouraged to do self proning -Incentive spirometry and Acapella -CXR: Bilateral pulmonary opacities consistent with clinical diagnosis of COVID-19 -Continue remdesivir and dexamethasone daily -On vancomycin/Zosyn/azithromycin -Albuterol 2 puffs every 4 as needed -Increased inflammatory markers-repeat after 48 hours to trend CVS: -Hemodynamically stable -Echo 06/26/2020:Normal left ventricular size and systolic function, EF 60%. No regional wall motion abnormalities. Mild-moderate mitral valve regurgitation. Trace to mild tricuspid valve regurgitation. -BNP slightly elevated GI: #Hyperlipidemia -On Lipitor 20 mg p.o. daily #Diet -On regular diet #GI prophylaxis -Protonix 40 daily as patient is on steroids #Normal LFTs RENAL: -Renal functions normal -Electrolytes within normal limits -Overall close to even; Monitor input output -Avoid nephrotoxins -Monitor BUN/creatinine and electrolytes and supplement accordingly to keep k>4, Mg >2 HEM: H&H stable Plts stable,will trend Coags stable DVT prophylaxis: Enoxaparin ENDO: -No active issues -If sugars and CMP are high-start on scale coverage ID: #COVID pna -Afebrile and mild leukocytosis -likely due to steroids -Cultures negative to date -On vancomycin/Zosyn/azithromycin -if no fever spikes and the WBC remains same we can DC antibx tomorrow Prognosis: Critical Disposition: Remains in ICU Code: Full code Plan of care and recommendations conveyed to Dr. South hospitalist on the case, RN and RT ICU CHECKLIST: Problem list updated Verbal orders reviewed and signed Analgesia: Not required Glycemic Control: None Nutrition: Regular diet Restraint Renewal (within 24 hrs): No Ulcer Prophylaxis: PPI yes Chemical Thromboprophylaxis: Prophylaxis: Lovenox Mechanical Thromboprophylaxis: Yes Need for Central line: No Need for Chen catheter: No Critical Care Time (No Overlap): 45 min This patient has a high probability of sudden, clinically significant deterioration, which requires the highest level of physician preparedness to intervene urgently. I managed/supervised life or organ supporting interventions that required frequent physician assessment. I devoted my full attention in the ICU to the direct care of this patient for the period of time indicated above. Time I spent with family or surrogate(s) is included only if the patient was incapable of providing necessary information or participating in decision making. Time devoted to teaching and to any procedures I billed separately is not included. Services Provided: Telemetry review Mechanical Ventilation Hemodynamic interpretation, assessment and management Review and interpretation of CXR Review and interpretation of lab values Review and interpretation of microbiologic data and culture results Review of medications and administration Review and interpretation of Nutrition requirements and management Discussion of management with other consultants and services Clinical update to family members Consult Attestations Medical Necessity Statement: Acute hypoxic respiratory failure secondary to COVID-19 pneumonia requiring high flow nasal cannula and monitoring for respiratory status Time Spent in Patient Care: Greater than 35 minutes (>than 50% of time spent in counselling and/or direct pt care on unit). 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
[2020-06-27] MEDS: vancomycin 1,500 MG/300 ML PIGGYBACK 150 MG IV ×2 (01:18→13:33)
[2020-06-27 03:51] LABS: Basophils % 0.1 %; Hematocrit 38.3 % (42.0-52.0); Hemoglobin 12.6 g/dL (11.7-16.6); Lymphocytes # 1.1 10^3/uL (0.8-4.8); Lymphocytes % 8.6 %; Mean Corpuscular HGB Conc 32.9 g/dL (30.0-36.0); Mean Corpuscular Hemoglobin 29.3 pg (28.0-34.0); Mean Corpuscular Volume 89.1 fL (80-94); Monocytes # 1.1 10^3/uL (0.2-0.9); Monocytes % 8.4 %; Neutrophils # 10.85 10^3/uL (1.8-7.7); Neutrophils % 81.8 %; Nucleated Red Blood Cells % 0 %; Platelet Count 401 10^3/cmm (130-400); Red Cell Distribution Width 13.6 % (12.1-15.1); White Blood Count 13.3 10^3/uL (4.0-10.0)
[2020-06-27 04:31] LABS: Alanine Aminotransferase 27 U/L (0-41); Albumin Level 2.9 g/dL (3.5-5.2); Alkaline Phosphatase 48 IU/L (40-130); Anion Gap 11.7 (5-19); Aspartate Amino Transferase 19 U/L (0-40); Blood Urea Nitrogen 16 mg/dL (6-20); Calcium 8.5 mg/dL (8.5-10.5); Carbon Dioxide 30 mmol/L (22-29); Chloride 104 mmol/L (98-107); Globulin 2.4 g/dL (1.3-4.6); Glomerular Filtration Rate 116.7 mL/min (90-130); Glucose 141 mg/dL (65-115); Osmolality Calculated 298 mOsm/kg (285-295); Potassium 3.7 mmol/L (3.5-5.1); Sodium 142 mmol/L (136-145); Total Bilirubin 0.4 mg/dL (0.15-1.2); Total Protein 5.3 g/dL (6.6-8.7)
--- NOTE | 2020-06-27 05:24 | PC.NURSE ---
NURSE NOTE: SHIFT SUMMARY: PT RESTING IN BED WITH EYES CLOSED FOR MOST OF SHIFT. IN PRONE POSITION AT 2200-REMAINS IN PRONE POSITION AT PRESENT; TOLERATING WELL. 02 SATS 95%-96% ON HHFNC @ 40L/FI02 OF 75%. ALERT AND ORIENTED X4. MOVES ALL EXTREMITIES AND FOLLOWS COMMANDS. DENIES PAIN. NO DISTRESS NOTED.
[2020-06-27] MEDS: piperacillin-tazobactam 3.375 GM in sodium chloride 0.9% (plus) 50 ML IV ×3 (05:37→21:35)
[2020-06-27] MEDS: albuterol 8 gm MDI 2 PUFF INHALATION ×3 (08:26→21:07)
[2020-06-27] MEDS: atorvastatin 40 mg Tablet 20 MG PO (08:51)
[2020-06-27] MEDS: pantoprazole DR 40 mg Tablet PO (08:51)
[2020-06-27] MEDS: benzonatate 100 mg Capsule PO ×3 (08:51→21:35)
[2020-06-27] MEDS: azithromycin 500 MG in sodium chloride 0.9% 250 ML 250 MG IV (13:33)
--- NOTE | 2020-06-27 13:58 | P.PN_ITS ---
Subjective Subjective: Interval history: 54-year-old male with a past medical history significant for hyperlipidemia who presented to the hospital on 06/24/2020 with shortness of breath. He was found to be hypoxic on arrival with oxygen saturation in the low 90s requiring 2 L of O2 via nasal cannula. His laboratory workup showed a WBC 9.6, hemoglobin of 14.2, hematocrit of 43.1 and a platelet count of 243. Sodium 141, potassium 3.8, chloride 101, bicarb 29, BUN 17 and creatinine is 0.8. Lactic acid 1.3. ProBNP was 496. LFTs were within normal limits. Rapid covered antigen was negative. Patient was initially given ceftriaxone and azithromycin. Also started on Decadron 6 mg daily. Initially patient declined Remdesivir. On 06/25 a CTA chest was then performed which did not show any evidence of acute pulmonary embolism however was noted to have patchy bilateral pulmonary ground-glass opacities suspected to be due to COVID- 19. On 06/26 he was noted to have increasing oxygen requirement. He was placed on HFNC requiring flow at 40L/70% FiO2 shortly after his COVID PCR send out reported to be positive. arterial blood gases were drawn which showed a pH of 7.45, pCO2 of 42.6 and a PO2 61.4 with a bicarb of 29.6. he was initiated on vancomycin and Zosyn 3.375 g IV q.8 hours in addition to azithromycin 500 mg IV daily. Solu-Medrol 30 mg IV q.8 hours was continued and Remdesivir 5 day protocol was initiated. Of not ferritin was also checked and found to be 810. Pulmonary medicine was consulted and patient was [facility]. Subjective - Patient was doing well today. Remained on HFNC with flow at 40L and FIo2 of 60%.. Self proned last evening. No new complaints were noted. No reported fever, chills, nausea or vomiting. No chest pain. Medications: Reviewed: Yes Vitals/I&O/Wt Last Vital Signs Temp 98.2 F 06/27/20 08:00 Pulse 56 L 06/27/20 13:16 Resp 20 H 06/27/20 13:07 BP 132/75 06/27/20 09:00 Pulse Ox 98 06/27/20 13:07 06/26/20 06/27/20 06/27/20 22:59 06:59 14:59 Intake Total 1050 / 2100 590 / 2690 290 / 290 Output Total 625 / 1475 1050 / 2525 225 / 225 Balance 425 / 625 -460 / 165 65 / 65 Weight last 48 hrs Weight 89.613 kg Weight 93.071 kg Physical Exam Narrative: EXAM NARRATIVE: GEN: Awake, alert and oriented, currently on heated high flow HEENT : grossly unremarkable CVS: S1S2 NSR RS: Non-labored respiration Abd: Non-disteded HEAT AND FROST INSULATOR: no focal neuro deficits EXT : NO edema Data : 06/27/20 03:10 06/27/20 03:10 Micro: Microbiology 06/25/20 00:30 Gram Stain - Final Sputum - Expectorated Sputum Sputum Culture - Final A&P Assessment and plan (1) Respiratory failure with hypoxia: Status: Acute Qualifiers: Chronicity: acute Qualified Code(s): J96.01 - Acute respiratory failure with hypoxia (2) Person under investigation for COVID-19: Status: Acute (3) Pneumonia: As above. Status: Acute Qualifiers: Laterality: bilateral Lung location: unspecified part of lung Pneum onia type: due to unspecified organism Qualified Code(s): J18.9 - Pneumonia, unspecified organism (4) Hemoptysis: Hold aspirin. Treat pneumonia. Zbigniew Ellison. Monitor. add lovenox for DVT ppx. Status: Acute Additional A&P Information Will continue to wean Fio2/flow on Heated HFNC. Continue remdesivir 100 mg IV daily for additional 3 days Solu-medrol 30 mg IV q8hr - May consider changing to long active decadron Continue broad spectrum abx for now however low suspecion - Bacterial ag, legionella, blood culture x 2 - > negative - Vancomycin pharmacy to dose - Zosyn 3.375g IV q8hr - Azithromycin 500 mg IV daily - Check Procalcitonin in am - If negative and no fevers will de-escalate abx Pulmonary medicine on board Check cbc/cmp/abg/pro-juan/d-dimer/ferritin levels in am Continue remainder of home meds Lovenox 40 mg Sq daily for DVT ppx Attestations Medical Necessity Statement*: Will require hospitalization for management of acute hypoxic respiratory failure. Time Spent in Patient Care: Greater than 35 minutes (>than 50% of time spent in counselling and/or direct pt care on unit) . Coding Level of Care Code Acute Pathology Laboratory Aide for g Fwd Diagnoses Respiratory failure with hypoxia J96.01 Chronicity: acute Person under investigation for COVID-19 Z20.828 Pneumonia J18.9 Laterality: bilateral Lung location: unspecified part of lung Pneumonia type: due to unspecified organism Hemoptysis R04.2
[2020-06-27] MEDS: enoxaparin 40 mg/0.4 mL Syringe SUBCUT (15:11)
[2020-06-27 17:53] LABS: Coronavirus Test Green County Not Detected
[2020-06-27] MEDS: remdesivir 100 MG in sodium chloride 0.9% (100 ml) 100 ML IV (18:17)
[2020-06-27] MEDS: dexamethasone 4 mg/mL INJ 6 MG IVP (19:41)
[2020-06-28] VITALS (31 sets, daily range): BP systolic 116–169; BP diastolic 63–100; PULSE 45–83; RESP 13–30; TEMP 36.6–36.9; O2SAT 6–98
[2020-06-28] MEDS: vancomycin 1,500 MG/300 ML PIGGYBACK 150 MG IV (01:20)
[2020-06-28] MEDS: piperacillin-tazobactam 3.375 GM in sodium chloride 0.9% (plus) 50 ML IV ×3 (05:33→23:56)
[2020-06-28] MEDS: albuterol 8 gm MDI 2 PUFF INHALATION ×3 (07:28→22:24)
[2020-06-28] MEDS: benzonatate 100 mg Capsule PO ×3 (08:08→21:06)
[2020-06-28] MEDS: atorvastatin 40 mg Tablet 20 MG PO (08:09)
[2020-06-28] MEDS: pantoprazole DR 40 mg Tablet PO (08:09)
[2020-06-28 13:05] LABS: Vancomycin Trough 9.7 ug/mL (10-15)
--- NOTE | 2020-06-28 13:05 | PM.PN ---
Subjective Subjective: Interval history: 54-year-old male with a past medical history significant for hyperlipidemia who presented to the hospital on 06/24/2020 with shortness of breath. He was found to be hypoxic on arrival with oxygen saturation in the low 90s requiring 2 L of O2 via nasal cannula. His laboratory workup showed a WBC 9.6, hemoglobin of 14.2, hematocrit of 43.1 and a platelet count of 243. Sodium 141, potassium 3.8, chloride 101, bicarb 29, BUN 17 and creatinine is 0.8. Lactic acid 1.3. ProBNP was 496. LFTs were within normal limits. Rapid covered antigen was negative. Patient was initially given ceftriaxone and azithromycin. Also started on Decadron 6 mg daily. Initially patient declined Remdesivir. On 06/25 a CTA chest was then performed which did not show any evidence of acute pulmonary embolism however was noted to have patchy bilateral pulmonary ground-glass opacities suspected to be due to COVID-19. On 06/26 he was noted to have increasing oxygen requirement. He was placed on HFNC requiring flow at 40L/70% FiO2 shortly after his COVID PCR send out reported to be positive. arterial blood gases were drawn which showed a pH of 7.45, pCO2 of 42.6 and a PO2 61.4 with a bicarb of 29.6. he was initiated on vancomycin and Zosyn 3.375 g IV q.8 hours in addition to azithromycin 500 mg IV daily. Solu-Medrol 30 mg IV q.8 hours was continued and Remdesivir 5 day protocol was initiated. Of not ferritin was also checked and found to be 810. Pulmonary medicine was consulted and patient was [facility]. Subjective - Patient was doing well today. Remained on HFNC with flow at 40L and FIo2 of 60%.. Self proned last evening. No new complaints were noted. No reported fever, chills, nausea or vomiting. No chest pain. 06/18/20 Improving on 8-10L of o2 via NC Medications: Reviewed: Yes Vitals/I&O/Wt Last Vital Signs Temp 98.4 F 06/28/20 20:00 Pulse 75 06/28/20 20:00 Resp 23 H 06/28/20 20:00 BP 132/73 06/28/20 20:00 Pulse Ox 94 06/28/20 20:00 12/06/28/20 06/28/20 06:59 14:59 22:59 Intake Total 550 / 2170 900 / 900 540 / 1440 Output Total 1100 / 2275 350 / 350 Balance -550 / -105 550 / 550 540 / 1090 Weight last 48 hrs Weight 89.613 kg Weight 89.613 kg Physical Exam Narrative: EXAM NARRATIVE: GEN: Awake, alert and oriented, currently on NC HEENT : grossly unremarkable CVS: S1S2 NSR RS: Non-labored respiration Abd: Non-disteded HOME HEALTH PHYSICAL THERAPIST: no focal neuro deficits EXT : NO edema Data : 06/27/20 03:10 06/27/20 03:10 A&P Assessment and plan (1) Respiratory failure with hypoxia: Status: Acute Qualifiers: Chronicity: acute Qualified Code(s): J96.01 - Acute respiratory failure with hypoxia (2) Person under investigation for COVID-19: Status: Acute (3) Pneumonia: As above. Status: Acute Qualifiers: Laterality: bilateral Lung location: unspecified part of lung Pneumonia type: due to unspecified organism Qualified Code(s): J18.9 - Pneumonia, unspecified organism (4) Hemoptysis: Hold aspirin. Treat pneumonia. Tessalon Perles. Monitor. add lovenox for DVT ppx. Status: Acute Additional A&P Information Will continue to wean Fio2/flow on Heated HFNC. Continue remdesivir Decadron Continue broad spectrum - De-escalate in next few ays Pro-calcitonin in am Pulmonary medicine on board Check Labs in am Continue remainder of home meds Lovenox 40 mg Sq daily for DVT ppx Attestations Medical Necessity Statement*: Conitnue hospitalization for covid 19 pneumnia rq o2 on remdesivir Time Spent in Patient Care: Greater than 35 minutes (>than 50% of time spent in counselling and/or direct pt care on unit). Coding Level of Care Code Acute Industrial Waste Inspector for Liv Hernandez Diagnoses Respiratory failure with hypoxia J96.01 Chronicity: acute Person under investigation for COVID-19 Z20.828 Pneumonia J18.9 Laterality: bilateral Lung location: unspecified part of lung Pneumonia type: due to unspecified organism Hemoptysis R04.2
[2020-06-28] MEDS: azithromycin 500 MG in sodium chloride 0.9% 250 ML 250 MG IV (13:28)
[2020-06-28] MEDS: vancomycin 1,500 MG/300 ML PIGGYBACK 200 MG IV (13:29)
[2020-06-28] MEDS: enoxaparin 40 mg/0.4 mL Syringe SUBCUT (15:47)
[2020-06-28] MEDS: dexamethasone 4 mg/mL INJ 6 MG IVP (18:14)
[2020-06-28] MEDS: remdesivir 100 MG in sodium chloride 0.9% (100 ml) 100 ML IV (18:15)
--- NOTE | 2020-06-28 19:01 | P.PN_ITS ---
Subjective Subjective: Interval history: Clinically improving and decreasing FiO2 requirements. Currently on 35% FiO2. Plan is to do physical therapy and mobilization and see for desaturation on exertion. Otherwise no new complaints and patient reported symptomatically he is feeling better Medications: Reviewed: Yes Vitals/I&O/Wt Last Vital Signs Temp 98.2 F 06/28/20 04:00 Pulse 76 06/28/20 17:00 Resp 22 H 06/28/20 17:00 BP 129/84 06/28/20 17:00 Pulse Ox 82 L 06/28/20 17:00 06/28/20 06/28/20 06/28/20 06:59 14:59 22:59 Intake Total 550 / 2170 900 / 900 540 / 1440 Output Total 1100 / 2275 350 / 350 Balance -550 / -105 550 / 550 540 / 1090 Weight last 48 hrs Weight 197 lb 9 oz Weight 197 lb 9 oz Physical Exam Narrative: EXAM NARRATIVE: General: alert, NAD HEENT: conj clear, EOMI, PERRL, mmm, Neck: supple, no meningismus Heme: no cervical LAP Pulmonary: Bilateral air entry present. Crackles heard on right lower lobe but otherwise normal Cardiovascular: rrr, nl s1s2, no mrg Abdomen: soft, nt, nd, no r/g, bs+ Extremities: pulses +, no edema, no c/c : no CVA tenderness Skin: intact, no rash MSK: no back or neck pain Neurologic: grossly intact Data : 06/27/20 03:10 06/27/20 03:10 Other data: Reviewed labs, imaging, other investigations in [facility] A&P Assessment and plan (1) Hemoptysis: Status: Acute (2) Respiratory failure with hypoxia: Status: Acute Qualifiers: Chronicity: acute Qualified Code(s): J96.01 - Acute respiratory failure with hypoxia (3) Suspected severe acute respiratory syndrome coronavirus 2 (SARS-CoV-2) infection: Status: Acute 54-year-old gentleman with past medical history of hyperlipidemia admitted to PICU for acute hypoxic respiratory failure secondary to COVID-19 pneumonia requiring high flow oxygen. NEURO: #No active issues -Mentation intact-alert oriented x3 PULM: #Acute hypoxic respiratory failure secondary to COVID pna -Currently saturating 93% on 30 L 35 % FiO2 -Encouraged to do self proning -Incentive spirometry and Acapella -Continue remdesivir-day 4 and dexamethasone daily -DC vancomycin/Zosyn/azithromycin -Albuterol 2 puffs every 4 as needed -Increased inflammatory markers-repeat tomorrow to see if trending down CVS: -Hemodynamically stable -Echo 06/26/2020:Normal left ventricular size and systolic function, EF 60%. No regional wall motion abnormalities. Mild-moderate mitral valve regurgitation. Trace to mild tricuspid valve regurgitation. -BNP slightly elevated GI: #Hyperlipidemia -On Lipitor 20 mg p.o. daily #Diet -On regular diet #GI prophylaxis -Protonix 40 daily as patient is on steroids #Normal LFTs RENAL: -Renal functions normal -Electrolytes within normal limits -Overall close to even; Monitor input output -Avoid nephrotoxins -Monitor BUN/creatinine and electrolytes and supplement accordingly to keep k>4, Mg >2 HEM: H&H stable Plts stable,will trend Coags stable DVT prophylaxis: Change to heparin subcu ENDO: -No active issues -If sugars and CMP are high-start on scale coverage ID: #COVID pna -Afebrile and mild leukocytosis -likely due to steroids -Cultures negative to date -DC vancomycin/Zosyn/azithromycin Prognosis: Guarded Disposition: Transfer to floor Code: Full code Plan of care and recommendations conveyed to Dr. South hospitalist on the case, RN and RT ICU CHECKLIST: Problem list updated Verbal orders reviewed and signed Analgesia: Not required Glycemic Control: None Nutrition: Regular diet Restraint Renewal (within 24 hrs): No Ulcer Prophylaxis: PPI yes Chemical Thromboprophylaxis: Prophylaxis: Change to heparin subcu Mechanical Thromboprophylaxis: Yes Need for Central line: No Need for Chen catheter: No Critical Care Time (No Overlap): 45 min This patient has a high probability of sudden, clinically significant deterioration, which requires the highest level of physician preparedness to intervene urgently. I managed/supervised life or organ supporting interventions that required frequent physician assessment. I devoted my full attention in the ICU to the direct care of this patient for the period of time indicated above. Time I spent with family or surrogate(s) is included only if the patient was incapable of providing necessary information or participating in decision making . Time devoted to teaching and to any procedures I billed separately is not included. Services Provided: Telemetry review Mechanical Ventilation Hemodynamic interpretation, assessment and management Review and interpretation of CXR Review and interpretation of lab values Review and interpretation of microbiologic data and culture results Review of medications and administration Review and interpretation of Nutrition requirements and management Discussion of management with other consultants and services Clinical update to Attestations 2 Medical Necessity Statement*: Acute hypoxic respiratory failure secondary to COVID-19 pneumonia still requiring 5 to 6 L oxygen. Time Spent in Patient Care: Greater than 35 minutes (>than 50% of time spent in counselling and/or direct pt care on unit) . Critical Care Time: Critical Care Time (min): 40 Coding Level of Care Code Established Pt Acute Principal Cyber Engineer for Chg Fwd Patient Type Established History Comprehensive Exam Comprehensive Medical Decision Making Moderate Complexity Diagnoses Hemoptysis R04.2 Respiratory failure with hypoxia J96.01 Chronicity: acute Suspected severe acute respiratory syndrome coronavirus 2 (SARS-CoV-2) infection Z20.828 Time Spent (min) 40
--- NOTE | 2020-06-28 20:56 | PC.NURSE ---
Callled report to Jade WEATHERS
[2020-06-29] VITALS (10 sets, daily range): BP systolic 123–160; BP diastolic 76–93; PULSE 46–85; RESP 18; TEMP 36.3–36.6; O2SAT 83–97
[2020-06-29] MEDS: vancomycin 1,500 MG/300 ML PIGGYBACK 150 MG IV ×2 (01:33→14:04)
[2020-06-29] MEDS: piperacillin-tazobactam 3.375 GM in sodium chloride 0.9% (plus) 50 ML IV ×2 (06:34→14:04)
[2020-06-29] MEDS: atorvastatin 40 mg Tablet 20 MG PO (08:39)
[2020-06-29] MEDS: benzonatate 100 mg Capsule PO ×2 (08:39→15:23)
[2020-06-29] MEDS: pantoprazole DR 40 mg Tablet PO (10:03)
[2020-06-29] MEDS: azithromycin 500 MG in sodium chloride 0.9% 250 ML 250 MG IV (14:04)
[2020-06-29] MEDS: enoxaparin 40 mg/0.4 mL Syringe SUBCUT (15:23)
[2020-06-29] MEDS: remdesivir 100 MG in sodium chloride 0.9% (100 ml) 100 ML IV (16:45)
[2020-06-29] MEDS: dexamethasone 4 mg/mL INJ 6 MG IVP (16:46)
--- NOTE | 2020-06-29 17:10 | P.DS_ITS ---
Discharge Providers Date of Admission: 06/24/20 16:15 Date of Discharge: June 29, 2020 Attending Provider at Admission: Ezequiel Barber Attending Provider at Discharge: Daniel South Diagnoses at Discharge Discharge Diagnosis (1) Respiratory failure with hypoxia: Status: Acute Qualifiers: Chronicity: acute Qualified Code(s): J96.01 - Acute respiratory failure with hypoxia (2) Person under investigation for COVID-19: Status: Acute (3) Pneumonia: Status: Acute Qualifiers: Laterality: bilateral Lung location: unspecified part of lung Pneumonia type: due to unspecified organism Qualified Code(s): J18.9 - Pneumonia, unspecified organism (4) Hemoptysis: Status: Acute Reason for Visit Reason for Visit: Throwing up Blood/low O2/Dizzy/SOB,sent from [facility] Hospital Course Hospital Course 54-year-old male with a past medical history significant for hyperlipidemia who presented to the hospital on 06/24/2020 with shortness of breath. He was found to be hypoxic on arrival with oxygen saturation in the low 90s requiring 2 L of O2 via nasal cannula. His laboratory workup showed a WBC 9.6, hemoglobin of 14.2, hematocrit of 43.1 and a platelet count of 243. Sodium 141, potassium 3.8, chloride 101, bicarb 29, BUN 17 and creatinine is 0.8. Lactic acid 1.3. ProBNP was 496. LFTs were within normal limits. Rapid covered antigen was negative. Patient was initially given ceftriaxone and azithromycin. Also started on Decadron 6 mg daily. Initially patient declined Remdesivir. On 06/25 a CTA chest was then performed which did not show any evidence of acute pulmonary embolism however was noted to have patchy bilateral pulmonary ground- glass opacities suspected to be due to COVID-19. On 06/26 he was noted to have increasing oxygen requirement. He was placed on HFNC requiring flow at 40L/70% FiO2 shortly after his COVID PCR send out reported to be positive. arterial blood gases were drawn which showed a pH of 7.45, pCO2 of 42.6 and a PO2 61.4 with a bicarb of 29.6. he was initiated on vancomycin and Zosyn 3.375 g IV q.8 hours in addition to azithromycin 500 mg IV daily. Solu-Medrol 30 mg IV q.8 hours was continued and Remdesivir 5 day protocol was initiated. Of not ferritin was also checked and found to be 810. Pulmonary medicine was consulted and patient was transferred to VICU. Celena was then continued on high flow and weaned to NC which he tolerated. He was able to self prone with out any distress. Remdesivir was continued, completed 5 day course on 06/29. Solu-medrol was changed to decadron 6 mg PO daily for an additional 10 days. Patient continued to improve. On day of discharge he was qualified for home o2 and arranged. He was anxious to discharge home. D/w patient home oxygen monitoring. Verbalized understand of instructions of when to return to ER. Advised to call pulmonary clinic and make follow up appointment. Of note patient was already on broad-specturm antibiotics. Culture did not show any growth. Antibiotics were not continued at discharge. Physical Exam Narrative: EXAM NARRATIVE: GEN: Awake, alert and oriented, currently on NC HEENT : grossly unremarkable CVS: S1S2 NSR RS: Non-labored respiration Abd: Non-disteded HISTORY TEACHER: no focal neuro deficits EXT : NO edema Discharge Data Data Completed and Pending: Completed Studies During Hospitalization Category Date Time Status CT angio chest PE protcl [id number] Rout ine Cat Scan 06/25/20 14:42 Completed XR chest 1V harini ble 44067 Stat Exams 06/24/20 13:35 Completed CV echo complete* [id number] Stat Ultrasound 06/26/20 11:33 Completed Vitals: Last Vital Signs Temp 97.6 F 06/29/20 15:20 Pulse 84 06/29/20 15:20 Resp 18 06/29/20 15:20 BP 123/76 06/29/20 15:20 Pulse Ox 95 06/29/20 15:20 Discharge Plan Discharge Patient Disposition: Home Condition: Stable Prescriptions: New Decadron 6 mg tablet 6 mg PO DAILY Qty: 7 RF: 0 Continued pravastatin 40 mg tablet 40 mg PO DAILY@08 RF: 0 aspirin 81 mg Tablet,Chewable 81 mg PO DAILY@08 RF: 0 Discontinued azithromycin 250 mg tablet 250 mg PO . DIRECTED RF: 0 dexamethasone 4 mg tablet 4 mg PO DAILY RF: 0 Discharge Orders: Discharge Order (Routine); Ordered 06/29/20 Ordered By: Daniel South Other Ambulatory Orders: DME: Oxygen (Order) Location: None Selected Ordered By: Daniel Akosua Referrals: [facility] [Other] (This is the name of your oxygen provider. If you have any questions or concerns regarding your oxygen/supplies, please call the [place] location at the phone number provided.) Datar,Derik Morales MD [Physician] - 1 week Discharge Diet: Advance as tolerated Discharge Activity: Increase activity as tolerated Activity Restrictions/Additional Instructions: Home o2 monitoring. Gradually increase activity. Return to ER if worsening respiratory distress, fevers or oxygen level less than 90% persistently. Discharge Attestations Time Spent in Discharge Care*: greater than 30 min Specific Discharge Activities: educating patient, educating and/or supporting family/caregiver, discussing with pcp/other providers, discussing with case management rn/social workers/dc planners, documenting/other paperwork and evaluating patient/reviewing data Status at Discharge: Cognitive status at discharge: cognitively intact , Behavioral status at discharge: cooperative , Functional status at discharge: independent ambulation Overall status at discharge: patient is progressing back to baseline Quality Metrics Clinical Quality Measures During this hospital stay, did patient experience: None Coding Level of Care Code Acute Grinder Operator Surface Tool for Liv Hernandez Diagnoses Respiratory failure with hypoxia J96.01 Chronicity: acute Person under investigation for COVID-19 Z20.828 Pneumonia J18.9 Laterality: bilateral Lung location: unspecified part of lung Pneumonia type: due to unspecified organism Hemoptysis R04.2
--- NOTE | 2020-06-29 18:04 | PC.NURSE ---
data analyst report writer called patient's home o2 company [phone] to make sure patient will have home oxygen delivered tonight. Tech said they will call patient's and set up appt to drop of home oxygen tonight.
== END 2020-06-29 18:55 | disposition home or self-care (01) | DRG 177 ==
LOC: ER 16:19 → ICU 18:34 → MEDSURG 06-28 22:10
PROVIDERS: Student in an Organized Health Care Education/Training Program; Admitting Provider Internal Medicine; Emergency Provider Family Medicine; Visit Provider Hospitalist
DX: U07.1 COVID-19 (principal); J12.89 Other viral pneumonia; J96.01 Acute respiratory failure with hypoxia; R04.2 Hemoptysis; E78.5 Hyperlipidemia, unspecified; Z79.82 Long term (current) use of aspirin
CPT/HCPCS: 12345; 36415; 36600; 71045; 71275; 80053; 80202; 82728; 82803; 83605; 83615; 83880; 84484; 85007; 85025; 85378; 86140; 86403; 87040; 87070; 87081; 87205; 87426; 87449; 87635; 87804; 93005; 93306; 94640; 96372; 99283; J0456; J0696; J1100; J1650; J2543; J2920; J3370; J3535; J7030; J7050; J8540; Q9967